=== PATIENT | female | born 1995 | race Caucasian/White ===

== ENCOUNTER 2020-09-08 10:20 | Emergency (ER) | payer BC, MEDICAID, SELFPAY ==
[2020-09-08 10:26] VITALS: BP 145/76; PULSE 82; RESP 18; TEMP 36.7; O2SAT 100
[2020-09-08 11:24] LABS: Basophils Absolute Auto 0.1 K/mm3 (0.0-0.1); Basophils Percent Auto 0.7 % (0.2-1.2); Eosinophils Absolute Auto 0.2 K/mm3 (0-0.3); Eosinophils Percent Auto 2.2 % (0-4.4); Hematocrit 37.2 % (37.0-47.0); Hemoglobin 12.2 g/dL (12.0-15.0); Immature Granulocyte Absolute 0.03 K/mm3 (0.00-0.031); Immature Granulocyte Percent A 0.4 % (0-0.5); Lymphocytes Absolute Auto 2.26 K/mm3 (0.9-3.2); Lymphocytes Percent Auto 31.3 % (18.3-44.2); Mean Corpuscular HGB Conc 32.8 g/dl (32-36); Mean Corpuscular Volume 88.4 fl (80-100); Mean Platelet Volume 10.6 fl (7.4-10.4); Monocytes Absolute Auto 0.6 K/mm3 (0.1-0.6); Monocytes Percent Auto 8.4 % (2.6-8.5); Neutrophils Absolute Auto 4.1 K/mm3 (1.3-6.7); Platelet Count Result 258 k/mm3 (150-375); Red Blood Count 4.21 M/mm3 (4.2-5.4); White Blood Count 7.2 K/mm3 (4.5-10.0)
[2020-09-08 11:34] LABS: Alanine Aminotransferase 19 U/L (4-35); Albumin Level 4.2 g/dL (3.5-5.1); Alkaline Phosphatase 72 U/L (38-126); Anion Gap 4 mmol/L (8-16); Aspartate Amino Transferase 24 U/L (14-36); Bilirubin,Total 0.5 mg/dL (0.2-1.3); Blood Urea Nitrogen 13 mg/dL (7-17); Calcium 9.2 mg/dL (8.4-10.2); Carbon Dioxide 25 mmol/L (22-30); Chloride 108 mmol/L (98-107); Estimated CRCL calculation 155 ml/min; Estimated Glomerular Filt Rate > 60; Glucose 97 mg/dL (65-105); Potassium 4.5 mmol/L (3.4-5.0); Sodium 137 mmol/L (137-145)
[2020-09-08 12:14] LABS: Prothrombin Time 13.7 Seconds (11.1-14.7)
[2020-09-08 12:15] LABS: Partial Thromboplastin Time 26.9 SECONDS (22.3-36.8)
--- NOTE | 2020-09-08 12:26 | ED.GIBLEED ---
HPI - GI Bleed General Chief complaint: GI Bleed Stated complaint: Blood in Stool Time Seen by Provider: 09/08/20 11:48 Source: patient Mode of arrival: ambulatory Limitations: no limitations History of Present Illness HPI Narrative: This is a 25-year-old female that presents to the emergency department for rectal bleeding present over the last couple of weeks. Reports she usually notes it when she wipes. Reports today and felt a lot of the toilet bowl which concerned her. She does report history of this in the past after having her child. Is unsure if she has had a hemorrhoid or fissure to cause this. Denies fever, abdominal pain, vomiting, or diarrhea. Related Data Home Medications Medication Instructions Recorded Confirmed etonogestrel 68 mg subdermal 1 implant SUBDERMAL ONCE 03/03/19 05/11/20 implant Allergies Allergy/AdvReac Type Severity Reaction Status Date / Time avocado Allergy Severe throat Verified 09/08/20 10:28 swelling Review of Systems Review of Systems: Narrative: CONSTITUTIONAL: Denies fever GASTROINTESTINAL: Denies abdominal pain, nausea, vomiting, or diarrhea. All systems reviewed & are unremarkable except as noted in HPI and below PMFSH Past Medical History Medical History (Updated 09/08/20 @ 12:30 by Maricarmen Valdes PA-C) History of anxiety Family History Family History Mother Family history of mental disorder Family history of migraine headaches Patient's mother is in good health Social History Social History Smoking packs per day: 0.5 Smoking cigarettes per day: 10.0 Years smoked: 3 Smoking pack-years: 1.50 Smoking status: Current every day smoker Tobacco type: e-cigarettes/vaping Second hand tobacco smoke exposure: Yes Alcohol intake: current Drinks per week: 0 Substance use: never Exam Narrative: Exam Narrative: GENERAL: Well-appearing, well-nourished, and in no acute distress. HEAD: Normocephalic, atraumatic. EYES: EOMI. CHEST: Clear to auscultation. No respiratory distress. No wheezes rales or rhonchi HEART: Regular rate and rhythm. No murmur heard. Normal peripheral pulses. ABDOMEN: Soft, nontender, nondistended, normal active bowel sounds. EXTREMITIES: Normal range of motion. No edema. SKIN: Warm, dry, no rash. NEURO: No focal deficits. Alert and oriented x3. PSYCH: Normal mood and affect RECTAL: Small, nonthrombosed external hemorrhoid present on exam. No active bleeding. Hemoccult negative Course Vital Signs Vital signs: Vital Signs Temperature 98.0 F 09/08/20 10:26 Pulse Rate 82 09/08/20 10:26 Respiratory Rate 18 09/08/20 10:26 Blood Pressure 145/76 H 09/08/20 10:26 Pulse Oximetry 100 09/08/20 10:26 Temperature 98.0 F 09/08/20 10:26 Pulse Rate 82 09/08/20 10:26 Respiratory Rate 18 09/08/20 10:26 Blood Pressure 145/76 H 09/08/20 10:26 Pulse Oximetry 100 09/08/20 10:26 MDM - GI Bleed MDM Narrative Medical decision making narrative: Patient presents to the emergency department for rectal bleeding. Noted over the last couple of weeks, with worsening today. Does report history of constipation and has had blood in the stool present after having her last child. Was unsure if she had history of hemorrhoids or fissures. Hemoglobin is normal. Vitals are stable. On exam I do note a small external hemorrhoid that is nonthrombosed. No active bleeding. Patient will be treated for this. Will be given GI for follow-up. She was given warnings to return to the ER Lab Data Attestation: I reviewed the patient's lab results. Result diagrams: 09/08/20 11:17 09/08/20 11:17 Labs: Lab Results 09/08/20 09/08/20 09/08/20 Range/Units 11:17 11:17 11:17 WBC 7.2 (4.5-10.0) K/mm3 RBC 4.21 (4.2-5.4) M/mm3 Hgb 12.2 (12.0-15.0) g/dL Hct 37.2 (37.
== END 2020-09-08 12:55 | disposition home or self-care (01) ==
PROVIDERS: Physician Assistant; Emergency Provider Emergency Medicine; PCP Physician Assistant
DX: K64.9 Unspecified hemorrhoids (principal); F41.9 Anxiety disorder, unspecified
CPT/HCPCS: 36415; 80053; 85025; 85610; 85730; 86850; 86900; 86901; 99283

== ENCOUNTER 2021-06-02 15:12 | Emergency (ER) | payer BC, SELFPAY ==
[2021-06-02 15:14] VITALS: BP 149/89; PULSE 114; RESP 18; TEMP 37; O2SAT 100
--- NOTE | 2021-06-02 15:53 | ED.GENADULT ---
HPI - General Adult General Chief complaint: Unspecified Stated complaint: infection Time Seen by Provider: 06/02/21 15:25 History of Present Illness HPI narrative: Patient is a 26-year-old female who presents ER with concerns of swelling to her eyelids and hands. Patient developed a sore throat and had a televisit with her PCP. He diagnosed her with a bacterial infection of her throat and prescribed a cephalosporin. Patient has been taking medicine today noticed swelling to her hands and eyelids. Ports tightness her hands when she is squeezing them shut. No difficulty seeing. No redness to her face. No swelling to the tongue or lips. No difficulty breathing or swallowing. Patient has mild sinus congestion. No productive cough. Related Data Allergies Allergy/AdvReac Type Severity Reaction Status Date / Time avocado Allergy Severe throat Verified 05/30/21 09:38 swelling Review of Systems Review of Systems: All systems reviewed & are unremarkable except as noted in HPI and below Constitutional: Constitutional: Denies chills and Denies fever(s) ENT: Reports nasal congestion, Reports sore throat, Denies throat swelling and Denies tongue swelling Cardiovascular: Cardiovascular: Denies chest pain, Denies radiating jaw, neck or arm pain and Denies dyspnea Respiratory: Respiratory: Denies cough, Denies dyspnea and Denies wheezing Musculoskeletal: Comments: And edema PMFSH Past Medical History Medical History History of anxiety Family History Family History Mother Family history of mental disorder Family history of migraine headaches Patient's mother is in good health Social History Social History Smoking packs per day: 0.5 Smoking cigarettes per day: 10.0 Years smoked: 3 Smoking pack-years: 1.50 Smoking status: Current every day smoker Tobacco type: e-cigarettes/vaping Second hand tobacco smoke exposure: Yes Alcohol intake: current Drinks per week: 0 Alcohol use details: 2 a month Substance use: never Exam Narrative: GENERAL: Well-appearing, well-nourished, and in no acute distress. HEAD: Normocephalic, atraumatic. EYES: PERRLA and EOMI. mild edema of the upper lobes bilaterally without cellulitis. No scleral injection. ENT: Mucous membranes moist. Pharyngeal erythema noted. No tonsillar hypertrophy or exudate. Small area in the posterior pharynx that may represent vesicle. NECK: Supple. No swelling of the lips. CHEST: Clear to auscultation. No respiratory distress. HEART: Tachycardic and regular. Normal peripheral pulses. EXTREMITIES: Normal range of motion. No edema. SKIN: Warm, dry, no rash. NEURO: Alert and oriented x3. Course Course Emergency Course: No evidence of angioedema. Suspect patient has some edema to her legs due to upper respiratory infection. Patient may be having some swelling sensation hands if she has cfhf-ushv-kwy-mouth disease. Recommend discontinuing oral antibiotic. Vital Signs Vital signs: Vital Signs Temperature 98.6 F 06/02/21 15:14 Pulse Rate 114 H 06/02/21 15:14 Respiratory Rate 18 06/02/21 15:14 Blood Pressure 149/89 H 06/02/21 15:14 Pulse Oximetry 100 06/02/21 15:14 Temperature 98.6 F 06/02/21 15:14 Pulse Rate 114 H 06/02/21 15:14 Respiratory Rate 18 06/02/21 15:14 Blood Pressure 149/89 H 06/02/21 15:14 Pulse Oximetry 100 06/02/21 15:14 Medical Decision Making Vital Signs Vital Signs: Vital Signs Temperature 98.6 F 06/02/21 15:14 Pulse Rate 114 H 06/02/21 15:14 Respiratory Rate 18 06/02/21 15:14 Blood Pressure 149/89 H 06/02/21 15:14 Pulse Oximetry 100 06/02/21 15:14 Temperature 98.6 F 06/02/21 15:14 Pulse Rate 114 H 06/02/21 15:14 Respiratory Rate 18 06/02/21 15:14 Blood Pressure 149/89 H 06/02
== END 2021-06-02 16:07 | disposition home or self-care (01) ==
PROVIDERS: Emergency Provider Emergency Medicine; PCP Physician Assistant
DX: H02.844 Edema of left upper eyelid (principal); H02.841 Edema of right upper eyelid; J06.9 Acute upper respiratory infection, unspecified; F41.9 Anxiety disorder, unspecified; F17.290 Nicotine dependence, other tobacco product, uncomplicated
CPT/HCPCS: 99281

== ENCOUNTER 2022-10-15 09:52 | Outpatient (CLI) | payer BC, MEDICAID, SELFPAY ==
--- NOTE | ~2022-10-15 | XR_ITS ---
EXAMINATION: XR lumbar spine 6V w bending DATE: 10/15/2022 10:15 INDICATION: Low back pain and nonradiating right sacroiliac joint pain TECHNIQUE: Anteroposterior, standing lateral in neutral, flexion and extension, left and right obliqu e views and cone-down lateral lumbosacral views of the lumbar spine were obtained. COMPARISON: None. FINDINGS: Bilateral hypoplastic riblets at T12 with 5 more caudal nonrib-bearing lumbar segments. Alignment is normal. There is normal motion with flexion and extension. Bilateral sacroiliac joints are normal wit h no erosions. IMPRESSION: Negative lumbar spine radiographs. Reviewed, dictated and finalized at location A.
== END 2022-10-15 09:53 | disposition home or self-care (01) ==
PROVIDERS: PCP Physician Assistant; Visit Provider Physician Assistant
DX: M54.50 Low back pain, unspecified (principal); G89.29 Other chronic pain
CPT/HCPCS: 72114

== ENCOUNTER 2022-11-11 08:59 | Emergency (ER) | payer BC, MEDICAID, SELFPAY ==
[2022-11-11 09:03] VITALS: BP 136/93; PULSE 86; RESP 16; TEMP 36.4; O2SAT 99
[2022-11-11 11:41] LABS: Basophils Absolute Auto 0.1 K/mm3 (0.0-0.1); Basophils Percent Auto 0.6 % (0.2-1.2); Eosinophils Absolute Auto 0.2 K/mm3 (0-0.3); Eosinophils Percent Auto 1.9 % (0-4.4); Hematocrit 42.8 % (37.0-47.0); Hemoglobin 13.5 g/dL (12.0-15.0); Immature Granulocyte Absolute 0.03 K/mm3 (0.00-0.031); Immature Granulocyte Percent A 0.3 % (0-0.5); Lymphocytes Absolute Auto 2.83 K/mm3 (0.9-3.2); Lymphocytes Percent Auto 26.3 % (18.3-44.2); Mean Corpuscular HGB Conc 31.5 g/dl (32-36); Mean Corpuscular Hemoglobin 28.2 pg (26-34); Mean Corpuscular Volume 89.4 fl (80-100); Mean Platelet Volume 10.5 fl (7.4-10.4); Monocytes Absolute Auto 0.6 K/mm3 (0.1-0.6); Monocytes Percent Auto 5.8 % (2.6-8.5); Neutrophils Percent Auto 65.1 % (45.5-73.1); Platelet Count Result 287 k/mm3 (150-375); Red Blood Count 4.79 M/mm3 (4.2-5.4); Red Cell Distribution Width 13.3 % (11.5-14.5); White Blood Count 10.8 K/mm3 (4.5-10.0)
[2022-11-11 11:51] LABS: Alanine Aminotransferase 23 U/L (6-35); Albumin Level 4.4 g/dL (3.5-5.1); Alkaline Phosphatase 91 U/L (38-126); Anion Gap 9 mmol/L (8-16); Aspartate Amino Transferase 24 U/L (14-36); Bilirubin,Total 0.4 mg/dL (0.2-1.3); Blood Urea Nitrogen 12 mg/dL (7-17); Calcium 9.1 mg/dL (8.4-10.2); Carbon Dioxide 25 mmol/L (22-30); Chloride 103 mmol/L (98-107); Estimated CRCL calculation 132 ml/min; Estimated Glomerular Filt Rate > 60; Glucose 90 mg/dL (65-110); Lipase 71 U/L (23-300); Potassium 4.4 mmol/L (3.4-5.0); Sodium 137 mmol/L (137-145)
[2022-11-11 12:03] LABS: Appearance Urine Cloudy (Clear); Bacteria Urine None Seen /hpf; Bilirubin Urine Negative (Negative); Blood Urine Negative (Negative); Color Urine Yellow (Yellow); Glucose Urine UA Negative (Negative); Ketones Urine Trace mg/dL (Negative); Leukocyte Esterase Ur Negative LEU/UL (Negative); Need Manual Microscopic Reviewed; Nitrate Urine Negative (Negative); Non Pathogenic Casts 0-2; Protein Urine Negative (Negative); Squamous Epithelial Cell Urine Few /hpf (Few); Urobilinogen Urine 0.2 mg/dL (<2.0); WBC Urine 0-5 /hpf; pH Urine 5.5 (5.0-9.0)
[2022-11-11 12:04] LABS: Add Urine Microscopic? YES
--- NOTE | 2022-11-11 13:12 | ED.ABDPAIN ---
HPI - Abdominal Pain General Chief Complaint: Abdominal Pain Stated Complaint: ABD PAIN Time Seen by Provider: 11/11/22 13:11 Source: patient Mode of arrival: ambulatory Limitations: no limitations History of Present Illness HPI narrative: Mel is a 27-year-old female patient presenting to clinic today with complaints of mid and upper abdominal discomfort, nausea, vomiting, and diarrhea. She reports that she has only vomited 1 time per day. Symptoms started yesterday. Has cramping pain in her mid and upper abdomen. Denies any known fever or chills. Related Data Allergies Allergy/AdvReac Type Severity Reaction Status Date / Time avocado Allergy Severe throat Verified 11/11/22 09:02 swelling cefprozil Allergy Intermediate Swelling Verified 11/11/22 09:02 Review of Systems Review of Systems: Pertinent positives per HPI. Patient denies any fever, chills, rash, headache, visual changes, dizziness, cough, runny nose, sore throat, shortness of breath, chest pain, palpitations, constipation, or any urinary issues. [facility] Past Medical History Medical History History of anxiety Family History Family History Mother Family history of mental disorder Family history of migraine headaches Patient's mother is in good health Social History Social History Smoking packs per day: 0.5 Smoking cigarettes per day: 10.0 Years smoked: 3 Smoking pack-years: 1.50 Smoking status: Current every day smoker Tobacco type: e-cigarettes/vaping Second hand tobacco smoke exposure: Yes Alcohol intake: current Drinks per week: 0 Alcohol use details: 2 a month Substance use: never Lack of Transportation: No Lack of Food: Never True Current Housing: I Have Housing Concerned About Future Housing: No Difficulty Paying Gas/Electric Bills: No Difficulty Paying for Meds: No Currently Unemployed: No Education: High School Diploma/GED Difficulty w/ Childcare or Family Care: No Exam Narrative: General: Well-developed, overweight, in no apparent distress. Head: Normocephalic, atraumatic. Cardio: Regular rate and rhythm, s1 and s2 normal, no murmur appreciated. Resp: Clear to auscultation bilaterally, no rhonchi, rales, wheezing or rubs. Abdomen: Soft, pliable, nondistended, bowel sounds present in all quadrants, mid epigastric/ Mid abdomen tender to palpation, no organomegly, no CVAT tenderness. Course Vital Signs Vital signs: Vital Signs Temperature 36.4 C 11/11/22 09:03 Pulse Rate 86 11/11/22 09:03 Respiratory Rate 16 11/11/22 09:03 Blood Pressure 136/93 H 11/11/22 09:03 Pulse Oximetry 99 11/11/22 09:03 Temperature 36.4 C 11/11/22 09:03 Pulse Rate 86 11/11/22 09:03 Respiratory Rate 16 11/11/22 09:03 Blood Pressure 136/93 H 11/11/22 09:03 Pulse Oximetry 99 11/11/22 09:03 MDM - Abdominal Pain MDM Narrative Medical decision making narrative: At the time of visit patient is resting comfortably on exam table. CBC shows white count slightly elevated 10.8 without shift. CMP- unremarkable, urinalysis shows trace ketones and is slightly cloudy pain, lipase-normal and bedside test negative. COVID/ flu test are negative. I suspect patient has gastroenteritis. Will send in prescription for Levsin and Zofran. Supportive measures were discussed with the patient she voiced understanding discharge instructions agrees to treatment plan. Differential Diagnosis Differential diagnosis: Likely abdominal pain, acute appendicitis, calculus of kidney, constipation, diverticulitis, gastroenteritis and small bowel obstruction Lab Data 11/11/22 11:30 11/11/22 11:30 Labs: Lab Results 11/11/22 Range/Units 11:30 WBC 10.8 H (4.5-10.0) K/mm3 RB
[2022-11-11 14:08] LABS: Influenza A QL RT-PCR Negative (Negative); Influenza B QL RT-PCR Negative (Negative); SARS-CoV-2 RNA PCR Negative (Negative)
[2022-11-11 14:21] VITALS: PULSE 80; RESP 19; O2SAT 98
== END 2022-11-11 14:22 | disposition home or self-care (01) ==
LOC: ANHED 14:01
PROVIDERS: General Practice; Emergency Provider Nurse Practitioner Family; PCP Physician Assistant
DX: K52.9 Noninfective gastroenteritis and colitis, unspecified (principal); F17.210 Nicotine dependence, cigarettes, uncomplicated; F17.290 Nicotine dependence, other tobacco product, uncomplicated
CPT/HCPCS: 36415; 80053; 81001; 81025; 83690; 85025; 87636; 99283

== ENCOUNTER 2022-12-09 14:30 | Outpatient (RCR) | payer BC, MEDICAID, SELFPAY ==
--- NOTE | 2022-10-23 09:25 | OPREHPOC ---
Outpatient Therapy Plan of Care This is a Multidisciplinary Plan of Care that may contain components documented by all disciplines (PT, OT, and ST.) PT Problem 1 PT Problem #1 Knowledge Deficit PT Goal 1 Goal Independent with HEP Target Visit 8 PT Problem 2 PT Problem #2 Pain PT Goal 1 Goal decrease pain to no worse than 4/10 in a week Target Visit 8 PT Problem 3 PT Problem #3 Impaired Strength PT Goal 1 Goal increase RONI hip strength to 5/5 Target Visit 8 PT Problem 4 PT Problem #4 Impaired Flexibility PT Goal 1 Goal -20 degrees RONI hamstrings Target Visit 8
--- NOTE | 2022-10-23 09:25 | PTOPEVAL1 ---
Assessment and note entered by Kevin Benitez, PT Evaluation Information Assessment Status Evaluation Diagnosis low back pain Onset chronic since at least 19 years old Subjective Information Patient reporting chronic low back pain, mainly centralized, but occasionally will radiate down to RONI knee she states along the bones. Patient recalls no specific injury, but the pain is getting worst. 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 Patient uses icy hot and was recently prescribed Cymbalta to help with chronic pain. Patient reports that she just feels like she needs the back to pop, but no matter what she does including stretches and having her boyfriend try to crac it it never pops. Reported Pain Level Pain Score 2: Self Report Assessment PT Clinical Summary Guadalupe is a 27 year old female coming into the clinic with a diagnosis of low back pain. The patient has weak core and hip muscles along with tight hamstrings. Physical therapy will work on stretching out the hamstring while increasing the strength of the core and hips while educating the patient on posture and body mechanics. Manual therapy and modalities as needed for pain control. Plan of Care Interventions Electrical Stimulation,Gait Training,Hot Pack/Cold Pack,Manual Therapy,Neuro Re-education,Patient/ Caregiver Education,Therapeutic Activities, Therapeutic Exercise,Ultrasound Other Interventions cupping, taping, IASTM PT Services Indicated Yes Treatment Frequency and 1-2x/wk for 8 visits Duration These treatments will address the objective and functional deficits as defined above. The patient will be advanced safely and appropriately in order for the patient to progress towards his/her prior level of function. Additional exercises will be introduced and as well as a comprehensive home exercise program upon discharge, if needed, ?to ensure carryover of functional gains achieved in the clinic. This treatment plan has been reviewed and agreement upon by the patient.
--- NOTE | 2022-11-05 14:38 | PCPTNOTE ---
Pt. called and cancelled her appointment on this date. She stated that the bus bringing her children home will be running late and she would be unable to make her appointment on time.
--- NOTE | 2022-11-11 14:27 | PCPTNOTE ---
Patient called & cancelled scheduled appointment this date due to being sick
--- NOTE | 2022-11-19 18:03 | PTOPEVAL1 ---
Assessment and note entered by Mendoza Ybarra Evaluation Information Assessment Status Progress Diagnosis low back pain Onset chronic since at least 19 years old Subjective Information Pt. reports that her pain is less intense. She continues to describe pain across the lower back. She states that pain is still most notable with long periods of standing. She reports she has been unable to attend therapy due to family problems and bus scheduling with her kids, but is now more under control. She has noticed progress since last Rx and would like to continue treatment in order to decrease pain with standing. Reported Pain Level Pain Score 4: Self Report Assessment PT Clinical Summary Pt. has attended a total of 3 treatment sessions. She has had poor attendance due to at home complications. Pt. feels that her time is more balanced currently and can attend treatment more regularly. She continues to present with indications of core weakness and instability. Continued skilled PT at a decreased frequency is indicated in order to improve postural awareness and strength in order to reduce pain. New goals established on this date. Plan of Care Interventions Electrical Stimulation,Hot Pack/Cold Pack,Manual Therapy,Neuro Re-education,Patient/Caregiver Educati,Therapeutic Activities,Therapeutic Exercise Other Interventions cupping, taping, IASTM PT Services Indicated Yes Treatment Frequency and 1x/week x 4 visits Duration These treatments will address the objective and functional deficits as defined above. The patient will be advanced safely and appropriately in order for the patient to progress towards his/her prior level of function. Additional exercises will be introduced and as well as a comprehensive home exercise program upon discharge, if needed, ?to ensure carryover of functional gains achieved in the clinic. This treatment plan has been reviewed and agreement upon by the patient.
--- NOTE | 2022-12-09 14:55 | PCPTNOTE ---
Patient did not show up for scheduled appointment this date. Called, unable to leave voicemail due to voicemail box being full. This is Pt's second N/S.
--- NOTE | 2022-12-17 15:25 | PCPTNOTE ---
Pt. did not show for her scheduled appointment on this date. Attempted to contact her with no answer.
--- NOTE | 2023-01-28 15:58 | PCPTNOTE ---
PHYSICAL THERAPY DISCHARGE Ms. Toledo has received 4 PT sessions, from Oct 22 to Dec 02. She called and canceled 3 and did not show for 3 appointments. She will be discharged at this time. The goals were not addressed.
== END 2023-01-20 23:59 | disposition home or self-care (01) ==
LOC: ANHPT 14:30
PROVIDERS: PCP Physician Assistant; Visit Provider Physician Assistant
DX: M54.50 Low back pain, unspecified (principal); G89.29 Other chronic pain
CPT/HCPCS: 97110; 97112; 97140; 97161; 97530; 99199

== ENCOUNTER 2023-05-14 21:08 | Emergency (ER) | payer BC, MEDICAID, SELFPAY ==
--- NOTE | ~2023-05-14 | CT_ITS ---
EXAMINATION: CT brain wo con INDICATION: Dizziness COMPARISON: None TECHNIQUE: Standard unenhanced head CT. The dose-length product (DLP) was 605.33 mGy-cm. The mA was a djusted according to patient size. Iterative reconstruction technique was employed. FINDINGS: No intracranial hemorrhage, acute infarction, or abnormal mass lesion. The ventricles are n ormal. No abnormal mass effect or midline shift. The thornton-white matter differentiation is normal. The basal cisterns are patent. The orbits are normal. The paranasal sinuses, mastoids and calvarium are normal. IMPRESSION: 1. No acute intracranial abnormality. Reviewed, dictated and finalized at location F. SOLUTION ARCHITECT
--- NOTE | ~2023-05-14 | XR_ITS ---
EXAMINATION: XR chest 2V DATE: 05/14/2023 22:42 INDICATION: Lightheadedness TECHNIQUE: Frontal and lateral views of the chest are obtained COMPARISON: 08/02/2017 FINDINGS: The lungs are free of acute opacities. No pleural effusion or pneumothorax. The cardiomedia stinal silhouette is normal. The visualized bones and soft tissues are unremarkable. IMPRESSION: 1. No acute cardiopulmonary abnormality. Reviewed, dictated and finalized at location F. PRODUCTS DIRECTOR
[2023-05-14 21:16] VITALS: BP 142/85; PULSE 85; RESP 16; TEMP 36.8; O2SAT 100
--- NOTE | 2023-05-14 21:21 | ECG_ITS ---
Measurements Intervals Holder Rate: 84 P: 35 SC: 132 QRS: 21 QRSD: 89 T: 30 QT: 361 QTc: 429 Interpretive Statements SINUS RHYTHM BASELINE ARTIFACT- I, II, AVR, AVL, AVF NORMAL ECG NO PREVIOUS ECG AVAILABLE FOR COMPARISON Electronically Signed On 05-15-2023 6:39:16 PUTTER IN by Kiran Tan D.O.
[2023-05-14 21:54] LABS: Basophils Absolute Auto 0.1 K/mm3 (0.0-0.1); Basophils Percent Auto 0.7 % (0.2-1.2); Eosinophils Absolute Auto 0.3 K/mm3 (0-0.3); Eosinophils Percent Auto 2.3 % (0-4.4); Hematocrit 40.8 % (37.0-47.0); Hemoglobin 12.6 g/dL (12.0-15.0); Immature Granulocyte Absolute 0.04 K/mm3 (0.00-0.031); Immature Granulocyte Percent A 0.3 % (0-0.5); Lymphocytes Percent Auto 30.6 % (18.3-44.2); Mean Corpuscular HGB Conc 30.9 g/dl (32-36); Mean Corpuscular Hemoglobin 27.9 pg (26-34); Mean Corpuscular Volume 90.5 fl (80-100); Mean Platelet Volume 10.8 fl (7.4-10.4); Monocytes Absolute Auto 0.9 K/mm3 (0.1-0.6); Neutrophils Absolute Auto 6.6 K/mm3 (1.3-6.7); Neutrophils Percent Auto 58.1 % (45.5-73.1); Platelet Count Result 328 k/mm3 (150-375); Red Blood Count 4.51 M/mm3 (4.2-5.4); Red Cell Distribution Width 13.2 % (11.5-14.5); White Blood Count 11.4 K/mm3 (4.5-10.0)
[2023-05-14 22:11] LABS: Alanine Aminotransferase 18 U/L (6-35); Albumin Level 4.1 g/dL (3.5-5.1); Alkaline Phosphatase 84 U/L (38-126); Anion Gap 8 mmol/L (8-16); Aspartate Amino Transferase 20 U/L (14-36); Bilirubin,Total 0.3 mg/dL (0.2-1.3); Blood Urea Nitrogen 12 mg/dL (7-17); Calcium 9.3 mg/dL (8.4-10.2); Carbon Dioxide 22 mmol/L (22-30); Chloride 106 mmol/L (98-107); Estimated CRCL calculation 120 ml/min; Estimated Glomerular Filt Rate > 60; Glucose 106 mg/dL (65-110); Potassium 3.9 mmol/L (3.4-5.0); Sodium 136 mmol/L (137-145)
[2023-05-14 22:32] VITALS: BP 124/85; PULSE 67; RESP 20; O2SAT 98
--- NOTE | 2023-05-14 22:32 | ED.ARRPALP ---
HPI - Arrhythmia/Palpitations General Chief Complaint: Dizziness Stated Complaint: light headed, dizzy, off balance, Heart skipping Time Seen by Provider: 05/14/23 22:31 Source: patient Mode of arrival: ambulatory Limitations: no limitations History of Present Illness HPI narrative: This is a 28 year old female that presents to the ER for lightheadedness. Reports feeling lightheaded and dizzy today. Reports a mild headache. Reports she was walking down the steps and felt like she was going to pass out which prompted her to be seen. Denies chest pain, shortness of breath, vomiting, numbness or weakness. Related Data Allergies Allergy/AdvReac Type Severity Reaction Status Date / Time avocado Allergy Severe throat Verified 05/14/23 22:18 swelling cefprozil Allergy Intermediate Swelling Verified 05/14/23 22:18 Review of Systems Review of Systems: CONSTITUTIONAL: Denies fever EYES: Denies visual changes CARDIOVASCULAR: Denies chest pain or edema. RESPIRATORY: Denies dyspnea. GASTROINTESTINAL: Denies vomiting NEUROLOGIC: Denies numbness, or weakness. All systems reviewed & are unremarkable except as noted in HPI and below PMFSH Past Medical History Medical History History of anxiety Family History Family History Mother Family history of mental disorder Family history of migraine headaches Patient's mother is in good health Social History Social History Smoking packs per day: 0.5 Smoking cigarettes per day: 10.0 Years smoked: 3 Smoking pack-years: 1.50 Smoking status: Current every day smoker Tobacco type: e-cigarettes/vaping Second hand tobacco smoke exposure: Yes Alcohol intake: current Drinks per week: 0 Alcohol use details: 2 a month Substance use: never Lack of Transportation: No Lack of Food: Never True Current Housing: I Have Housing Concerned About Future Housing: No Difficulty Paying Gas/Electric Bills: No Difficulty Paying for Meds: No Currently Unemployed: No Education: High School Diploma/GED Difficulty w/ Childcare or Family Care: No Exam Narrative: GENERAL: Well-appearing, well-nourished, and in no acute distress. HEAD: Normocephalic, atraumatic. EYES: PERRLA and EOMI. ENT: Nares clear, no rhinorrhea or epistaxis. Mucous membranes moist. Oropharynx without tonsillar hypertrophy exudate or other lesions. Bilateral TMs pearly thornton non-bulging NECK: Supple. No adenopathy or masses. CHEST: Clear to auscultation. No respiratory distress. No wheezes rales or rhonchi HEART: Regular rate and rhythm. No murmur heard. Normal peripheral pulses. ABDOMEN: Soft, nontender, nondistended, normal active bowel sounds. EXTREMITIES: Normal range of motion. No edema. Strength equal in bilateral upper and lower extremities (5/5) SKIN: Warm, dry, no rash. NEURO: No focal deficits. Alert and oriented x3. Cranial nerves 2 through 12 grossly intact. Normal heel-meneses. Normal gait PSYCH: Normal mood and affect Course Course Emergency Course: Patient updated on her workup and agrees with plan of care Vital Signs Vital signs: Vital Signs Temperature 98.2 F 05/14/23 21:16 Pulse Rate 85 05/14/23 21:16 Respiratory Rate 16 05/14/23 21:16 Blood Pressure 142/85 H 05/14/23 21:16 Pulse Oximetry 100 05/14/23 21:16 Oxygen Delivery Room Air 05/14/23 21:16 Temperature 98.2 F 05/14/23 21:16 Pulse Rate 73 05/15/23 00:06 Respiratory Rate 22 H 05/15/23 00:06 Blood Pressure 113/75 05/15/23 00:06 Pulse Oximetry 100 05/15/23 00:06 Oxygen Delivery Room Air 05/14/23 21:16 MDM - Arrhythmia/Palpitations MDM Narrative Medical decision making narrative: Patient presents to the ER for lightheadedness/dizziness. She is afebrile and nontoxic appearing. Her vitals are stable.
[2023-05-14] MEDS: MECLIZINE HCL 25 MG TABLET PO (22:46)
[2023-05-14] MEDS: SODIUM CHLORIDE 0.9% IV 1,000 ML 999 ML IV CONT (22:47)
[2023-05-14] MEDS: ACETAMINOPHEN 500 MG TABLET 1000 MG PO (23:20)
[2023-05-15 00:06] VITALS: BP 113/75; PULSE 73; RESP 22; O2SAT 100
== END 2023-05-15 00:37 | disposition home or self-care (01) ==
PROVIDERS: Emergency Medicine; Emergency Provider Physician Assistant; PCP Physician Assistant
DX: R42 Dizziness and giddiness (principal); F17.290 Nicotine dependence, other tobacco product, uncomplicated
CPT/HCPCS: 36415; 70450; 71046; 80053; 81025; 85025; 93005; 96360; 99284; A9270; J7030

== ENCOUNTER 2023-09-01 22:41 | Emergency (ER) | payer BC, MEDICAID, SELFPAY ==
--- NOTE | ~2023-09-01 | CT_ITS ---
EXAMINATION: CT brain wo con DATE: 09/02/2023 01:17 INDICATION: Headache. TECHNIQUE: Computed tomography (CT) of the head was performed without intravenous contrast. The mA wa s adjusted according to patient size. Iterative reconstruction technique was employed. The dose-lengt h product was 605.33 mGy-cm. COMPARISON: Head CT 05/14/2023 FINDINGS: There is no intracranial hemorrhage, acute infarction, or abnormal intracranial mass lesion . The ventricles are normal in size. The orbits are normal. The paranasal sinuses are clear. The mast oid air cells are normal. IMPRESSION: 1. Normal brain. Reviewed, dictated and finalized at location A. IMPRESSION: 1. Normal brain.
[2023-09-01 22:50] VITALS: BP 138/90; PULSE 94; RESP 20; TEMP 36.6; O2SAT 98
[2023-09-02 00:16] VITALS: BP 118/73; PULSE 65; RESP 16; O2SAT 97
--- NOTE | 2023-09-02 00:46 | ED.GENADULT ---
HPI - General Adult General Chief complaint: Headache Stated complaint: migraine Time Seen by Provider: 09/02/23 00:27 History of Present Illness HPI narrative: patient 23-year-old female who presents emergency department chief complaint of headache. The patient reports the last 2 weeks she has been having headache patient reports she has been seen as an outpatient and diagnosed with papilledema patient reports she is to see Neurology but is working on scheduling an appointment. The patient states she has had headaches before in the past but her headaches have become more frequent. The patient denies weakness in arms or legs reports that the light does bother her eyes reports she has had nausea. Related Data Allergies Allergy/AdvReac Type Severity Reaction Status Date / Time avocado Allergy Severe throat Verified 09/01/23 22:55 swelling cefprozil Allergy Intermediate Swelling Verified 09/01/23 22:55 Review of Systems Review of Systems: A 10 system review of systems was completed on the patient and is negative except for what is stated in the HPI. Nursing and ancillary documentation was reviewed. PMFSH Past Medical History Medical History History of anxiety Family History Family History Mother Family history of mental disorder Family history of migraine headaches Patient's mother is in good health Social History Social History Smoking packs per day: 0.5 Smoking cigarettes per day: 10.0 Years smoked: 3 Smoking pack-years: 1.50 Smoking status: Current every day smoker Tobacco type: e-cigarettes/vaping Second hand tobacco smoke exposure: Yes Alcohol intake: current Drinks per week: 0 Alcohol use details: 2 a month Substance use: never Lack of Transportation: No Lack of Food: Never True Current Housing: I Have Housing Concerned About Future Housing: No Difficulty Paying Gas/Electric Bills: No Difficulty Paying for Meds: No Currently Unemployed: No Education: High School Diploma/GED Difficulty w/ Childcare or Family Care: No Exam Narrative: GENERAL: Well-appearing, well-nourished, and in no acute distress. HEAD: Normocephalic, atraumatic. EYES: PERRLA and EOMI. ENT: Nares clear, no rhinorrhea or epistaxis. Mucous membranes moist. NECK: Supple. CHEST: Clear to auscultation. No respiratory distress. HEART: Regular rate and rhythm. No murmur heard. Normal peripheral pulses. ABDOMEN: Soft, nontender, nondistended, normal active bowel sounds. EXTREMITIES: Normal range of motion. No edema. SKIN: Warm, dry, no rash. NEURO: No focal deficits. Alert and oriented x3. GCS 15 moves all extremities equally PSYCH: Normal mood and affect. Course Vital Signs Vital signs: Vital Signs Temperature 36.6 C 09/01/23 22:50 Pulse Rate 94 09/01/23 22:50 Respiratory Rate 20 09/01/23 22:50 Blood Pressure 138/90 09/01/23 22:50 Pulse Oximetry 98 09/01/23 22:50 Oxygen Delivery Room Air 09/01/23 22:50 Temperature 36.6 C 09/01/23 22:50 Pulse Rate 77 09/02/23 02:34 Respiratory Rate 16 09/02/23 02:34 Blood Pressure 137/72 09/02/23 02:34 Pulse Oximetry 96 09/02/23 02:34 Oxygen Delivery Room Air 09/01/23 22:50 Medical Decision Making MDM Narrative Medical decision making narrative: differential diagnosis includes migraine headache, pseudotumor cerebri, electrolyte abnormality, dehydration CT head showed no acute abnormalities laboratory studies showed white count 9.6 electrolytes are within normal limits urinalysis showed no evidence UTI patient received IV fluids antiemetics traditional migraine-type cocktail the patient was able to go to sleep and is feeling much better at this time on a patient will be discharged home follow-up wit
[2023-09-02 01:01] LABS: Basophils Absolute Auto 0.1 K/mm3 (0.0-0.1); Basophils Percent Auto 0.8 % (0.2-1.2); Eosinophils Absolute Auto 0.2 K/mm3 (0-0.3); Eosinophils Percent Auto 1.8 % (0-4.4); Hematocrit 37.3 % (37.0-47.0); Hemoglobin 11.9 g/dL (12.0-15.0); Immature Granulocyte Absolute 0.01 K/mm3 (0.00-0.031); Immature Granulocyte Percent A 0.1 % (0-0.5); Lymphocytes Absolute Auto 3.22 K/mm3 (0.9-3.2); Lymphocytes Percent Auto 33.5 % (18.3-44.2); Mean Corpuscular HGB Conc 31.9 g/dl (32-36); Mean Corpuscular Hemoglobin 27.9 pg (26-34); Mean Corpuscular Volume 87.4 fl (80-100); Mean Platelet Volume 10.4 fl (7.4-10.4); Monocytes Absolute Auto 0.8 K/mm3 (0.1-0.6); Monocytes Percent Auto 8.5 % (2.6-8.5); Neutrophils Absolute Auto 5.3 K/mm3 (1.3-6.7); Neutrophils Percent Auto 55.3 % (45.5-73.1); Platelet Count Result 318 k/mm3 (150-375); Red Blood Count 4.27 M/mm3 (4.2-5.4); Red Cell Distribution Width 13.7 % (11.5-14.5); White Blood Count 9.6 K/mm3 (4.5-10.0)
[2023-09-02] MEDS: KETOROLAC 30 MG/ML VIAL (*BKC) IV PUSH (01:03)
[2023-09-02] MEDS: diphenhydrAMINE HCl INJ 50 MG/ML VIAL IV PUSH (01:03)
[2023-09-02] MEDS: SODIUM CHLORIDE 0.9% IV 1,000 ML 999 ML IV CONT (01:03)
[2023-09-02] MEDS: PROCHLORPERAZINE EDISYLATE 10 MG/2 ML VIAL IV PUSH (01:03)
[2023-09-02 01:08] LABS: Appearance Urine Cloudy (Clear); Bacteria Urine 1+ /hpf; Bilirubin Urine Negative (Negative); Blood Urine Negative (Negative); Color Urine Yellow (Yellow); Glucose Urine UA Negative (Negative); Ketones Urine Trace mg/dL (Negative); Leukocyte Esterase Ur Negative LEU/UL (Negative); Nitrate Urine Negative (Negative); Non Pathogenic Casts 0-2; Protein Urine Negative (Negative); Squamous Epithelial Cell Urine Occasional /hpf (Few); WBC Urine 0-5 /hpf (0-3); pH Urine 5.5 (5.0-9.0)
[2023-09-02 01:12] LABS: Alanine Aminotransferase 20 U/L (6-35); Albumin Level 4.1 g/dL (3.5-5.1); Alkaline Phosphatase 86 U/L (38-126); Anion Gap 6 mmol/L (4-12); Aspartate Amino Transferase 23 U/L (14-36); Bilirubin,Total 0.4 mg/dL (0.2-1.3); Blood Urea Nitrogen 17 mg/dL (7-17); Calcium 8.9 mg/dL (8.4-10.2); Carbon Dioxide 25 mmol/L (22-30); Chloride 108 mmol/L (98-107); Estimated CRCL calculation 106 ml/min; Estimated Glomerular Filt Rate > 60; Glucose 97 mg/dL (65-110); Potassium 4.3 mmol/L (3.4-5.0); Sodium 139 mmol/L (137-145)
[2023-09-02 01:18] LABS: Add Urine Microscopic? YES; Specific Grav Ur 1.034 (1.001-1.035)
[2023-09-02 02:34] VITALS: BP 137/72; PULSE 77; RESP 16; O2SAT 96
== END 2023-09-02 03:32 | disposition home or self-care (01) ==
PROVIDERS: Emergency Provider Emergency Medicine; PCP Physician Assistant
DX: R51.9 Headache, unspecified (principal); F17.290 Nicotine dependence, other tobacco product, uncomplicated; Z79.899 Other long term (current) drug therapy
CPT/HCPCS: 36415; 70450; 80053; 81001; 81025; 85025; 96361; 96374; 96375; 99284; J0780; J1200; J1885; J7030

== ENCOUNTER 2023-09-07 13:56 | Outpatient (CLI) | payer BC, MEDICAID, SELFPAY ==
--- NOTE | 2023-10-02 12:13 | WPDHOLTEREM ---
Holter/Event Monitor Holter/Event Monitor Date of procedure: 09/28/23 Holter/Event Procedure: 48 Hr Holter Monitor Indications: Tachycardia Conclusion: 1. 48 hour holter monitor on 09/28/23. 2. Underlying rhythm is sinus rhythm. HR range 51-152 bpm; average HR 94 bpm. HR at 152 bpm was at 20:00. 3. There are 2 premature supraventricular complexes and 1 supraventricular couplet. No supraventricular tachycardia. 4. There are 7 premature ventricular complexes. No ventricular tachycardia. 5. No sinoatrial or atrioventricular blocks. No significant pauses greater than 2 seconds. 6. No symptoms available for correlation.
== END 2023-09-07 13:57 | disposition home or self-care (01) ==
LOC: ANHCARD 13:57
PROVIDERS: PCP Physician Assistant; Visit Provider Physician Assistant
DX: R00.0 Tachycardia, unspecified (principal)
CPT/HCPCS: 93225; 93226